=== PATIENT | male | born 1990 | race African-American/Black ===

== ENCOUNTER 2017-02-11 18:19 | Observation (INO) | payer OTHER ==
[~2017-02-11] VITALS: Ht 160 cm; Wt 91.8 kg
[~2017-02-11 18:19] MED LIST: JADENU360 MG PO; TYLENOL EXTRA500 MG PO
[2017-02-11 20:11] LABS: ANION GAP 10 MEQ/L (2-14); CHLORIDE 101 MEQ/L (99-109); POTASSIUM 3.3 MEQ/L (3.7-5.4); SAMPLE HEMOLYSIS CHECK 0; SAMPLE ICTERIC CHECK 0; SAMPLE LIPEMIA CHECK 0; SODIUM 136 MEQ/L (136-147); TOTAL BILIRUBIN 0.8 MG/DL (0.0-1.0)
[2017-02-11 20:17] LABS: ALKALINE PHOSPHATASE 73 IU/L (3-129); GFR ESTIMATE (CALCULATED) > 59 mL/min/ (58.99-99999); GLUCOSE 82 mg/dL (70-99); UREA NITROGEN (BUN) 12 mg/dL (9-23)
[2017-02-11 20:25] LABS: HEMATOCRIT 31.3 % (38.0-50.0); MCH 22.8 PG (29.0-34.0); MCHC 32.6 G/DL (30.0-36.0); MCV 69.9 FL (86-99); NRBC (%) 5.6 /100 WBC (0-0); RED BLOOD COUNT 4.48 M/uL (4.00-5.50); WHITE BLOOD COUNT 14.9 K/uL (4.1-10.2)
[2017-02-11 20:38] LABS: ADD MIUA? NO; BILIRUBIN NEGATIVE; BLOOD NEGATIVE; COLOR STRAW ((YELLOW)); GLUCOSE (STRIP) NEGATIVE; KETONES 5; LEUKOCYTES NEGATIVE; NITRITE NEGATIVE; PROTEIN (STRIP) 30; SPECIFIC GRAVITY 1.009 (1.000-1.030); UCUL ADDED? NO; UROBILINOGEN 0.2 MG/DL (0.2-1.0)
[2017-02-11 21:31] LABS: BASE EXCESS 1.2 mEq/L (-3 to +3); CARBOXY HGB 2.1 % (0-5); PCO2 41 mm Hg (35-45); SITE LR; pH 7.41 (7.35-7.45)
[2017-02-11 21:32] LABS: COMMENTS - BLOOD GASES A+C+; DEVICE RA; FI02 21 %; PO2 65 mm Hg (80-100); TOTAL RESP RATE 20 resp/min
[2017-02-11 21:38] LABS: TROP-I INTERPRETATION NEGATIVE; TROPONIN-I < 0.01 ng/mL (0.0-0.30)
[2017-02-11 21:43] LABS: IMM.RETIC FRACTION 12.7 % (3-19); MEAN PLAT.VOLUME 8.9 uM^3 (9.0-12.4); PLAT.SUFFICIENCY INCREASED; PLATELET COUNT 459 K/uL (156-360); RETICULOCYTE COUNT 5.8 % (0.5-1.8)
[2017-02-11 21:48] LABS: ABS NEUTROPHIL COUNT 10.1; ANISOCYTOSIS 1+; ATYPICAL LYMPHOCYTE 0.9 %; EOSINOPHIL ABS CT 0.1; EOSINOPHILS 0.9 % (0-5.0); HYPOCHROMASIA 2+; LYMPHOCYTES 17.7 % (15.0-45.0); NUCLEATED RBC'S 11.5; POIKILOCYTOSIS 3+; SEG.NEUTROPHILS 68.1 % (46.0-76.0); SPHEROCYTES 1+; STOMATOCYTES 1+; TARGET CELLS 3+
[2017-02-11 21:49] LABS: TEAR DROP CELLS OCC
[2017-02-11 21:50] LABS: SCHISTOCYTES OCC
[2017-02-11 21:53] LABS: BASE EXCESS 1.5 mEq/L (-3 to +3); BICARBONATE 25.9 mEq/L (22-26); CARBOXY HGB 2.8 % (0-5); PCO2 39 mm Hg (35-45); pH 7.43 (7.35-7.45)
[2017-02-11 21:54] LABS: COMMENTS - BLOOD GASES A+C+; DEVICE RA; PO2 91 mm Hg (80-100); SITE LR; TOTAL RESP RATE 22 resp/min
[2017-02-11 23:09] LABS: INTERNAL CONTROL VALID? YES; MONOSPOT (MONONUCLEOSIS SEROL) NEGATIVE
[2017-02-12 03:42] LABS: INTER. NORMALIZED RATIO 1.3; PROTHROMBIN TIME 14.7 SEC (10.2-12.9)
[2017-02-12 04:50] VITALS: BP 135/93
[2017-02-12 07:57] VITALS: BP 129/73
[2017-02-12 08:56] LABS: HEMATOCRIT 31.3 % (38.0-50.0); MCH 21.5 PG (29.0-34.0); MCHC 30.7 G/DL (30.0-36.0); MCV 70.2 FL (86-99); MEAN PLAT.VOLUME 9.2 uM^3 (9.0-12.4); NRBC (%) 7.2 /100 WBC (0-0); PLATELET COUNT 427 K/uL (156-360); RED BLOOD COUNT 4.46 M/uL (4.00-5.50); WHITE BLOOD COUNT 12.2 K/uL (4.1-10.2)
[2017-02-12 08:58] LABS: INTER. NORMALIZED RATIO 1.3; PROTHROMBIN TIME 14.7 SEC (10.2-12.9)
[2017-02-12 09:10] LABS: ANION GAP 7 MEQ/L (2-14); CHLORIDE 104 MEQ/L (99-109); GFR ESTIMATE (CALCULATED) > 59 mL/min/ (58.99-99999); POTASSIUM 3.4 MEQ/L (3.7-5.4); SAMPLE HEMOLYSIS CHECK 0; SAMPLE ICTERIC CHECK 0; SAMPLE LIPEMIA CHECK 0; SODIUM 138 MEQ/L (136-147); UREA NITROGEN (BUN) 9 mg/dL (9-23)
[2017-02-12 09:12] LABS: GLUCOSE 115 mg/dL (70-99)
[2017-02-12 09:35] LABS: TROP-I INTERPRETATION NEGATIVE; TROPONIN-I < 0.01 ng/mL (0.0-0.30)
[2017-02-12 12:00] VITALS: BP 140/79
[2017-02-12 14:47] LABS: TROP-I INTERPRETATION NEGATIVE; TROPONIN-I < 0.01 ng/mL (0.0-0.30)
[2017-02-12 16:00] VITALS: BP 146/90
[2017-02-12 19:33] VITALS: BP 152/81
[2017-02-12 23:47] VITALS: BP 139/77
[2017-02-13 03:42] VITALS: BP 155/85
[2017-02-13 06:45] LABS: HEMATOCRIT 29.8 % (38.0-50.0); MCH 22.4 PG (29.0-34.0); MCHC 32.2 G/DL (30.0-36.0); MCV 69.6 FL (86-99); NRBC (%) 7.9 /100 WBC (0-0); PLATELET COUNT 454 K/uL (156-360); RED BLOOD COUNT 4.28 M/uL (4.00-5.50); WHITE BLOOD COUNT 12.1 K/uL (4.1-10.2)
[2017-02-13 07:10] LABS: INTER. NORMALIZED RATIO 1.2; PROTHROMBIN TIME 13.2 SEC (10.2-12.9)
[2017-02-13 07:13] LABS: PTT 53.5 SEC (25-37)
[2017-02-13 07:36] LABS: ALKALINE PHOSPHATASE 70 IU/L (3-129); ANION GAP 8 MEQ/L (2-14); CHLORIDE 105 MEQ/L (99-109); GFR ESTIMATE (CALCULATED) > 59 mL/min/ (58.99-99999); LACTATE DEHYDROGENASE 231 IU/L (20-246); POTASSIUM 3.6 MEQ/L (3.7-5.4); SAMPLE HEMOLYSIS CHECK 0; SAMPLE ICTERIC CHECK 0; SAMPLE LIPEMIA CHECK 0; SODIUM 139 MEQ/L (136-147); UREA NITROGEN (BUN) 8 mg/dL (9-23)
[2017-02-13 07:37] LABS: GLUCOSE 86 mg/dL (70-99); TOTAL BILIRUBIN 0.6 MG/DL (0.0-1.0)
[2017-02-13 07:53] VITALS: BP 142/78
[2017-02-13] MEDS ORDERED: ELIQUIS5 MG PO ×2 (08:35→08:37)
[2017-02-13 08:45] LABS: SICKLE CELL SCREEN POSITIVE
[2017-02-13] MEDS ORDERED: PERCOCET 5/31 TABLET PO (10:40)
== END 2017-02-13 11:53 | disposition home or self-care (01) ==
LOC: EXP 18:19 → EME 18:19 → 5SOUTH 02-12 01:56 → EDOF 02-12 01:56 → 5SOUTH 02-12 01:56 → ENRESERV 02-12 02:06 → 5SOUTH 02-12 04:49 → ENPENDDIS 02-13 → 5SOUTH 02-13 09:16
PROVIDERS: Hospitalist; Nurse Practitioner Adult Health; Physician Assistant
DX: I26.99 Other pulmonary embolism without acute cor pulmonale (principal); D57.00 Hb-SS disease with crisis, unspecified; Z86.73 Personal history of transient ischemic attack (TIA), and cerebral infarction without residual deficits; Z90.49 Acquired absence of other specified parts of digestive tract; Z88.6 Allergy status to analgesic agent; Z79.01 Long term (current) use of anticoagulants; Z83.2 Family history of diseases of the blood and blood-forming organs and certain disorders involving the immune mechanism
CPT/HCPCS: 36600; 71020; 71275; 74177; 80048; 80053; 81003; 82803; 83615; 84484; 85025; 85027; 85610; 85660; 85730; 86308; 86850; 86900; 86901; 90686; 93005; 93970; 99281; 99285; G0378; J1170; J3010; J7030